=== PATIENT | male | born 1990 | race Caucasian/White ===

== ENCOUNTER 2016-12-08 05:32 | Day surgery (SDC) | payer OTHER ==
[~2016-12-08] VITALS: Ht 170.2 cm; Wt 90.7 kg
[2016-12-08] MEDS ORDERED: EFFEXOR XR150 MG (05:50)
--- NOTE | 2016-12-13 07:08 | OR ---
[facility] [address], [place] [address] Signed DATE OF PROCEDURE: 12/08/16 PREOPERATIVE DIAGNOSIS: Loose bodies, right shoulder. POSTOPERATIVE DIAGNOSIS Multiple small loose bodies, left shoulder (3-4 mm) with large loose bodies anteriorly that were densely adherent to the anterior glenoid neck. PROCEDURE: Shoulder arthroscopy with loose body removal. SURGEON: Say Loera MD. ANESTHESIA: General. SPECIMENS: None. COMPLICATIONS: None. TOURNIQUET: None. BLOOD LOSS: Minimal. PROCEDURE: The patient was taken to the operating room. After anesthesia was induced and airway secured, the patient was placed in a modified beach chair position and positioned, prepped and draped in a routine sterile fashion. The bony topography was outlined with a skin marking pen and the arthroscope was inserted through the standard posterior portal. An anterior portal was created using a switching stick technique and a nerve hook was introduced. Upon initial survey, there was a tremendous amount of debris floating around in the shoulder joined along with numerous tiny cartilage flakes, many of which had already rounded up into ovoids and there were tiny loose bodies. The motorized shaver was introduced through the anterior portal and these were suctioned out of the joint. There was also a rather significant synovitis of the anterior aspect of the shoulder joint and the subscapularis tendon. The VAPR device was then introduced and used to remove this tissue. We then reintroduced the probe. Careful inspection of the anterior glenoid neck and the subcoracoid recess did reveal 2 large chunks; however, they were not actually loose. There were densely adherent to the anterior aspect of the glenoid. We then searched rather diligently around the shoulder, both in the subcoracoid recess, the anterior pouch, inferiorly anteroinferiorly and posteriorly. We also searched over the superior aspect of the glenoid and no additional loose bodies could be identified. We then switched the scope to the anterior portal and placed the probe through the posterior portal again; there was a fair amount of debris, but no other significant Electronically Signed By: SAY LOERA MD 12/13/16 0708 PATIENT NAME: LEYDA ISABEL OPERATIVE REPORT DATE OF : 89 PHYSICIAN: SAY LOERA MD REPORT #: [id number] REPORT IS CONFIDENTIAL AND NOT TO BE RELEASED WITHOUT AUTHORIZATION [facility] [address], [place] [address] Signed loose bodies. The loose bodies imaged on the MRI scan were again seen to be densely adherent to the glenoid neck and were not really loose at all. Otherwise, however, a large cartilaginous defect on the anterior inferior aspect of the glenoid is consistent with prior traumatic subluxation if not dislocation. There were also some reciprocal changes on the posterior aspect of the humeral head. The shoulder was then copiously irrigated and drained. The portals closed and a sterile dressing applied. The patient placed in a sling, awakened and taken to the recovery room where he arrived in stable condition. Counts were correct and antibiotic protocols were followed. MD CLAUDIO Morales/Solange /[id number] cc: HETAL Benson Electronically Signed By: SAY LOERA MD 12/13/16 0708 PATIENT NAME: LEYDA ISABEL OPERATIVE REPORT DATE OF : 89 PHYSICIAN: SAY LOERA MD REPORT #: [id number] REPORT IS CONFIDENTIAL AND NOT TO BE RELEASED WITHOUT AUTHORIZATION
== END 2016-12-08 09:35 | disposition home or self-care (01) ==
LOC: OPS 05:32 → DS 05:32 → OPS 06:45
PROVIDERS: Orthopaedic Surgery
PROC: 0RCJ4ZZ Extirpation of Matter from Right Shoulder Joint, Percutaneous Endoscopic Approach (ICD-10-PCS; principal; 2016-12-08 06:45)
DX: M24.011 Loose body in right shoulder (principal); M65.811 Other synovitis and tenosynovitis, right shoulder
CPT/HCPCS: 01630; 64415; 76942; J0690; J1100; J1885; J2250; J2405; J2795; J3010; J7120